=== PATIENT | male | born 1940 | race Caucasian/White ===

== ENCOUNTER 2017-02-28 09:13 | Day surgery (SDC) | payer OTHER, MEDICARE ==
[2017-02-28] MEDS ORDERED: fentaNYL 100 MCG/2 ML INJ IVP ONE (09:22)
[2017-02-28] MEDS ORDERED: NS 500 ML IV ONE (09:22)
[2017-02-28] MEDS ORDERED: MIDAZOLAM 2 MG/2 ML VIAL IVP ONE (09:22)
[2017-02-28] MEDS ORDERED: ETOMIDATE 20 MG/10 ML VIAL IVP ONE (09:22)
[2017-02-28] MEDS ORDERED: PROPOFOL 200 MG/20 ML VIAL IVP ONE (09:22)
[2017-02-28] MEDS ORDERED: BENZOCAINE UNIT DOSE SPRAY HURRICAINE MM ONE (09:22)
--- NOTE | 2017-02-28 09:43 | CPEKG ---
Heart Rate: 153 RR Interval: 392 QRSD Interval: 90 QT Interval: 328 QTC Interval: 524 QRS [place]: -25 T Wave [place]: -5 EKG Severity - ABNORMAL ECG - EKG Impression: ATRIAL FIBRILLATION WITH RAPID V-RATE EKG Impression: BORDERLINE LEFT AXIS DEVIATION EKG Impression: BORDERLINE T ABNORMALITIES, INFERIOR LEADS EKG Impression: ATRIAL FIBRILLATION HAS REPLACED ATRIAL PACING NOTED ON PRIOR ECG Electronically Signed By: Gera Rothman 01-Mar-2017 14:22:10
[2017-02-28] MEDS ORDERED: ETOMIDATE 40 MG/20 ML INJ ONE (10:08)
[2017-02-28 10:22] LABS: INR 2.01 (0.83-1.16); PROTIME(PATIENT) 22.9 SEC (12.0-15.0)
[2017-02-28] MEDS ORDERED: ATROPINE SULFATE 1 MG/10 ML SYR ONE (10:33)
[2017-02-28 10:34] LABS: ANION GAP 11 mEq/L (8-16); CALCIUM 8.8 mg/dL (8.5-10.4); CARBON DIOXIDE 21 mEq/l (22-31); CHLORIDE 107 mEq/L (97-110); CREATININE 0.8 mg/dL (0.7-1.3); GLOMERULAR FILTRATION RATE > 60; GLUCOSE 117 mg/dL (70-100); MAGNESIUM 2.4 mg/dL (1.6-2.3); POTASSIUM 4.1 mEq/L (3.5-5.2); SODIUM 139 mEq/L (134-144)
--- NOTE | 2017-02-28 11:13 | CPEKG ---
Heart Rate: 80 RR Interval: 750 P-R Interval: 156 QRSD Interval: 100 QT Interval: 392 QTC Interval: 453 P [place]: 33 QRS [place]: -15 T Wave [place]: 8 EKG Severity - ABNORMAL ECG - EKG Impression: ATRIAL-PACED COMPLEXES EKG Impression: BORDERLINE LEFT AXIS DEVIATION EKG Impression: BORDERLINE PROLONGED QT INTERVAL EKG Impression: ATRIAL PACING HAS REPLACED ATRIAL FIBRILLATION NOTED ON PRIOR ECG Electronically Signed By: Gera Rothman 01-Mar-2017 14:22:32
--- NOTE | 2017-02-28 11:18 | PDTEE1 ---
ELA Cardioversion Procedure Procedure: Electrical Cardioversion Indications: Atrial Fibrillation Consent: Signed and in Chart Anticoagulation: Xarelto Procedural Details: The pads were placed in anterior-posterior position and the ELA probe was advanced with standard images obtained. There was no evidence of left atrial or left atrial appendage thrombus. Synchronized cardioversion attempt #1: 200J Results: Normal sinus rhythm (There was a brief period of PEA after cardioversion) Conclusions: Successful Cardioversion Patient Problems: Problems Problem Status Onset Atrial fibrillation and flutter Acute
== END 2017-02-28 15:48 | disposition home or self-care (01) ==
LOC: FCATH 09:13
PROVIDERS: ATTEND Internal Medicine Cardiovascular Disease
DX: I48.91 Unspecified atrial fibrillation (principal); I10 Essential (primary) hypertension; I25.10 Atherosclerotic heart disease of native coronary artery without angina pectoris
CPT/HCPCS: J0461; J2250; J3010

== ENCOUNTER → 2017-04-11 | Outpatient (CLI) | payer OTHER, MEDICARE | LOC: BHFA 14:30 | PROVIDERS: ATTEND Internal Medicine Cardiovascular Disease | DX: I25.10 Atherosclerotic heart disease of native coronary artery without angina pectoris (principal); N52.9 Male erectile dysfunction, unspecified; I10 Essential (primary) hypertension; E78.5 Hyperlipidemia, unspecified; I47.2 Ventricular tachycardia; Z95.0 Presence of cardiac pacemaker ==

== ENCOUNTER → 2017-05-29 | Outpatient (CLI) | payer OTHER, MEDICARE ==
[~2017-05-29] MED LIST: IOPAMIDOL (ISOVUE-M 300) 15 ML VIAL ONE; LIDOCAINE 1% 300 MG/30 ML SDV ONE
== END ==
LOC: FIMAGING 10:09
PROVIDERS: ATTEND Physician Assistant
PROC: B01B1ZZ Fluoroscopy of Spinal Cord using Low Osmolar Contrast (ICD-10-PCS; principal; 2017-05-29)
PROC: 3E0R3KZ Introduction of Other Diagnostic Substance into Spinal Canal, Percutaneous Approach (ICD-10-PCS; principal; 2017-05-29)
DX: M51.36 Other intervertebral disc degeneration, lumbar region (principal); M50.323 Other cervical disc degeneration at C6-C7 level; M47.892 Other spondylosis, cervical region; M48.02 Spinal stenosis, cervical region; M53.82 Other specified dorsopathies, cervical region
CPT/HCPCS: 62302; 72126; 72240; Q9967

== ENCOUNTER → 2017-06-25 | Outpatient (CLI) | payer OTHER, MEDICARE | LOC: BHFA 14:00 | PROVIDERS: ATTEND Internal Medicine Cardiovascular Disease | DX: Z01.810 Encounter for preprocedural cardiovascular examination (principal); I25.10 Atherosclerotic heart disease of native coronary artery without angina pectoris; Z95.0 Presence of cardiac pacemaker ==

== ENCOUNTER 2017-07-04 10:36 | Observation (INO) | payer OTHER, MEDICARE ==
--- NOTE | 2017-07-04 07:10 | PDHPUP ---
History & Physical Update H&P update statement: This history and physical update is based on an assessment of the patient which was completed after admission or registration (within 24 hours), but prior to the surgery/procedure. H&P update: H&P reviewed & patient examined, no change in patient's condition since H&P completed
[2017-07-04] MEDS ORDERED: ceFAZolin 2 GM/DEXTROSE 100 ML IV ONE (10:56)
[2017-07-04] MEDS ORDERED: LR 1,000 ML IV ONE (10:57)
[2017-07-04] MEDS ORDERED: LIDOCAINE 1% 2 ML INJ ID PRN (10:57)
[2017-07-04] MEDS ORDERED: LIDOCAINE 1% 2 ML INJ ONE (10:59)
[2017-07-04] MEDS ORDERED: BACITRACIN 50,000 UNITS/10 ML SYR IRR ONE (11:56)
[2017-07-04] MEDS ORDERED: THROMBIN (BOVINE) 5,000 UNIT VIAL TP ONE (11:56)
[2017-07-04] MEDS ORDERED: BUPIVACAINE/EPI 0.5% 30 ML SDV ONE (11:56)
--- NOTE | 2017-07-04 12:09 | PDANEPAE ---
[facility] History of Present Illness here for acdf ANE Past Medical History - Cardiovascular History Hx Hypertension: Yes Hx Arrhythmias: Yes Hx Chest Pain: No Hx Coronary Artery / Peripheral Vascular Disease: Yes Hx CHF / Valvular Disease: No Hx Palpitations: No Cardiovascular History Comment: [place] W X 6 STENTS PLCED '04. htn. cad. hyperlipidemia. pacemaker. nsvt. sss - Pulmonary History Hx COPD: No Hx Asthma/Reactive Airway Disease: No Hx Recent Upper Respiratory Infection: No Hx Oxygen in Use at Home: No Hx Sleep Apnea: No Sleep Apnea Screening Result - Last Documented: Positive Pulmonary History Comment: ruddy triggers - Neurologic History Hx Cerebrovascular Accident: No Hx Seizures: No Hx Dementia: No Neurologic History Comment: hx of back surgery x2 - Endocrine History Hx Diabetes: No Obesity: moderate - Renal History Hx Renal Disorders: Yes Renal History Comment: bph. ed - Liver History Hx Hepatic Disorders: No - Neurological & Psychiatric Hx Hx Neurological and Psychiatric Disorders: No - Cancer History Hx Cancer: Yes - Congenital Disorder History Hx Congenital Disorders: No - GI History Hx Gastrointestinal Disorders: Yes Gastrointestinal History Comment: reflux - Other Health History Other Health History: BRUISE EASILY. wears glasses. wears bilateral hearing aides - Chronic Pain History Chronic Pain: Yes (NECK AND R ARM) - Surgical History Prior Surgeries: BACK SURG x2. RAHEEM RTC. STENTS x6. PACEMAKER 2014. CARDIOVERSION . ABLATION 09-07-14. LOOP RECODER PLACED AND REM [place] Review of Systems Review of systems is: negative - Exercise capacity Exercise capacity: >=4 METS METS (RN): 4 METS - Pacemaker Pacemaker Type: Permanent Pacer/Defib Pacemaker Naturalization Examiner: [employer] [place] Pacemaker Model: Wili GALLO Pacemaker Mode: DDDR Pacemaker Set Rate: 60 Date Pacemaker Last Checked: 05/16/17 ANE Patient History - Allergies Allergies/Adverse Reactions: No Known Allergies Allergy (Verified 06/20/17 10:29) - Home Medications Home medications: home medication list seen and reviewed Home Medications: Ascorbic Acid [Vitamin C 500 mg (*)] 500 mg PO DAILY 09/07/14 [Last Taken ] Aspirin [Aspirin 81mg (*)] 81 mg PO DAILY 09/07/14 [Last Taken 06/27/17] Rivaroxaban [Xarelto] 20 mg PO DAILY 02/11/15 [Last Taken 06/27/17] Amlodipine Besylate [Norvasc] 5 mg PO DAILY 06/14/17 [Last Taken 07/04/17 06:00] Atorvastatin Calcium [Lipitor 20 mg (*)] 20 mg PO DAILY 06/14/17 [Last Taken ] Benazepril HCl [Lotensin] 40 mg PO DAILY 06/14/17 [Last Taken Unknown] Herbals/Supplements -Info Only 1 ea PO DAILY 06/14/17 [Last Taken 06/27/17] Metoprolol Succinate 50 mg PO DAILY 06/14/17 [Last Taken 07/04/17 06:00] Multivitamins [Multivitamin (*)] 1 each PO DAILY 06/14/17 [Last Taken 06/27/17] Pantoprazole Sodium [Protonix 40mg (*)] 40 mg PO DAILY 06/14/17 [Last Taken ] Tamsulosin HCl [Flomax 0.4 MG (*)] 0.4 mg PO DAILY 06/14/17 [Last Taken 07/02/17 ] - NPO status NPO Status: no food or drink >8 hours NPO Since - Liquids (Date): 07/03/17 NPO Since - Liquids (Time): 20:00 NPO Since - Solids (Date): 07/03/17 NPO Since - Solids (Time): 20:00 - Smoking Hx Smoking Status: Former smoker - Family Anes Hx Family Hx Anesthesia Complications: none ANE Labs/Vital Signs - Vital Signs Blood Pressure: 132/85 Heart Rate: 90 Respiratory Rate: 16 O2 Sat (%): 91 Height: 180.34 cm Weight: 97.522 kg ANE Physical Exam - Airway Neck exam: FROM, decreased ROM, short neck Mallampati Score: Class 2 Mouth exam: normal dental/mouth exam - Pulmonary Pulmonary: no respiratory distress - Cardiovascular Cardiovascular: regular rate and rhythym - ASA Status ASA Status: III ANE Anesthesia Plan Anesthesia Plan: general endotracheal anesthesia Specialized Airway: video laryngoscope
[2017-07-04] MEDS ORDERED: fentaNYL 100 MCG/2 ML INJ ONE ×2 (12:33→13:29)
[2017-07-04] MEDS ORDERED: PROPOFOL/EMULSION 500 MG/50 ML BOTTLE IV ONE ×2 (12:33→13:31)
[2017-07-04] MEDS ORDERED: BISACODYL 10 MG SUPP PR PRN (12:35)
[2017-07-04] MEDS ORDERED: METHOCARBAMOL 750 MG TAB PO PRN (12:35)
[2017-07-04] MEDS ORDERED: MAGNESIUM HYDROXIDE 30 ML UDCUP PO PRN (12:35)
[2017-07-04] MEDS ORDERED: POLYETHYLENE GLYCOL 3350 17 GM PKT PO PRN (12:35)
[2017-07-04] MEDS ORDERED: ONDANSETRON DISINTEGRATING 4 MG TAB PO PRN (12:35)
[2017-07-04] MEDS ORDERED: diphenhydrAMINE 25 MG CAP PO PRN (12:35)
[2017-07-04] MEDS ORDERED: ONDANSETRON 4 MG/2 ML VIAL IVP PRN ×2 (12:35→14:14)
[2017-07-04] MEDS ORDERED: LACTULOSE 20 GM/30 ML UDCUP PO PRN (12:35)
[2017-07-04] MEDS ORDERED: NS 1,000 ML IV SCH (12:45)
[2017-07-04] MEDS ORDERED: MIDAZOLAM 2 MG/2 ML VIAL ONE (12:49)
[2017-07-04] MEDS ORDERED: REMIFENTANIL HCL 1 MG VIAL ONE (13:32)
[2017-07-04] MEDS ORDERED: BUPIVACAINE 0.5% 30 ML SDV ONE (13:32)
[2017-07-04] MEDS ORDERED: DEXAMETHASONE 4 MG/ML VIAL IVP PRN (14:14)
[2017-07-04] MEDS ORDERED: fentaNYL 100 MCG/2 ML INJ IVP PRN (14:14)
[2017-07-04] MEDS ORDERED: HYDROmorphONE/DILAUDID 1 MG/ML SYR IVP PRN (14:14)
[2017-07-04] MEDS ORDERED: PROMETHAZINE HCL 25 MG/ML INJ IVP PRN (14:14)
[2017-07-04] MEDS ORDERED: NALOXONE HCL 0.4 MG/ML INJ IVP PRN (14:14)
--- NOTE | 2017-07-04 15:30 | SOAPPROG ---
SOAP Progress Note Assessment/Plan: Post Op Visit: S: Awake and alert. NAD. Pt with expected neck pain O: AFVSS/PERRLA/EOMI no droop CN 2-12 grossly intact +lt touch 5/5 BUE/BLE = CDI A/P: 76 yo male that is s/p ACDF C6/7 -orders in place -call with any questions or concerns -pt understands and agrees -collar in place 07/04/17 15:28 Objective: Vital Signs Temp Pulse Resp BP Pulse Ox 36.7 C 90 16 132/85 H 91 L 07/04/17 11:15 07/04/17 12:09 07/04/17 12:09 07/04/17 12:09 07/04/17 12:09 ICD10 Worksheet Patient Problems: Problems Problem Status Onset Cervical spinal stenosis Acute Atrial fibrillation and flutter Acute - ICD10 Problem Qualifiers (1) Cervical spinal stenosis
--- NOTE | 2017-07-04 16:01 | POSTANESTH ---
Post Anesthetic Evaluation Cardiovascular Status: Normal, Stable Respiratory Status: Normal, Stable Level of Consciousness/Mental Status: Can Participate in Eval Pain Control: Adequate, Prn Tx Ordered Nausea/Vomiting Control: Adequate, Prn Tx Ordered Complications Possibly Related to Anesthesia: None Noted
[2017-07-04] MEDS: ACETAMINOPHEN 500 MG TAB PO SCH ×2 (16:58→22:25)
[2017-07-04] MEDS ORDERED: HYDROCODONE/APAP 5/325 TAB PO PRN (17:14)
[2017-07-04] MEDS ORDERED: oxyCODONE IR 5 MG TAB ONE (17:20)
[2017-07-04] MEDS: oxyCODONE IR 5 MG TAB PO PRN ×2 (17:25→22:26)
[2017-07-04] MEDS: SENNOSIDES/DOCUSATE SODIUM TAB PO SCH (20:55)
[2017-07-04] MEDS: FAMOTIDINE 20 MG TAB PO SCH (20:55)
--- NOTE | 2017-07-04 21:28 | GOP ---
[f rep st] OPERATIVE REPORT DATE OF OPERATION: 07/04/2017 SURGEON: Rosaura Burton MD NEUROSURGEON: Paramjit Burton MD. BOG WORKER: JANAK Minaya. PREOPERATIVE DIAGNOSIS: Cervical spondylosis, cervical foraminal stenosis, C6-7, left C7 radiculopa thy. POSTOPERATIVE DIAGNOSIS: Cervical spondylosis, cervical foraminal stenosis, C6-7, left C7 radiculop athy. PROCEDURE PERFORMED: 1. Anterior cervical diskectomy with decompression, C6-7 and arthrodesis (70350). 2. Anterior cervical instrumentation C6-7 (80061). 3. Placement of biomechanical intervertebral device C6-7 (48835), microscope, same incision bone gr aft harvest. FINDINGS: ESTIMATED BLOOD LOSS: 50 cc. INDICATIONS: The patient has a long history of left C7 radiculitis and had a CT myelogram which yen wed really terrible spondylosis and DDD at C6-7 with some foraminal stenosis. He really had no evid ence of compression at 5-6 or C4-5 or C7-T1, but there was right greater than left foraminal stenosi s. But nevertheless, he had a left C7 radiculopathy and terrible degenerative changes in that disk and I thought it was reasonable to try an anterior cervical diskectomy and fusion at C6-7. He could not have an MRI and so our findings were based purely on CT myelogram. He knew there was a risk of failure and there was a risk of dysphagia, esophageal injury, carotid injury, recurrent laryngeal n erve injury, pseudoarthrosis, adjacent segment disease, and possible need for additional surgery at another level in the future. He accepted these risks and he did want to proceed. DESCRIPTION OF PROCEDURE: The patient was taken to the operating room, placed in supine position. General anesthesia was begun. Arterial line was placed. A midline shoulder roll was placed. He wa s put on the [employer] horseshoe head char filter tank tender. Care was taken to pad all points of contact. His neck was sterilely prepped and draped in usual fashion. We made an incision in the transverse fashion o n the right side of his neck, down low at the junction of the sternocleidomastoid and the manubrium. The subcutaneous tissue was dissected using Bovie cautery through the platysma, and we used a comb ination of sharp and blunt dissection medial to the sternocleidomastoid and lateral to the strap mus cles, down to the prevertebral space. There was an absolutely huge ossified coming off the ventral surface at C6-7. We dissected the longus colli muscles off the spine and then carefully drilled thi s large ventral osteophyte off. Localizing x-rays were taken. We then placed distraction pins in t he C6-C7 vertebral body, distracted between them, removed the disk and the cartilaginous endplates. We drilled and harvested subchondral bone for autologous grafting purposes, sized the space and cho se a 14 x 18 x 8 mm device. It was a very large wide implant. We decompressed from uncinate proces s to uncinate process. We opened the PLL and decompressed thecal sac and the neural foramina bilate rally. Bone dust was placed into the implant. It was inserted at C6-C7 and a nice fit was obtained . We removed our distraction pins, placed Gelfoam bullets in the holes that remained and we then ch ose a 14 mm plate, used 16 mm screws and placed all 4 screws and shot a final x-ray and they were al l in excellent position. The plate was sitting flush against the vertebral body. We then obtained meticulous hemostasis. Placed the dysphagia protocol study drug into the prevertebral space, 7 cc w ere used. We then closed the platysma with interrupted Vicryl sutures and place Steri-Strips on the skin. The patient was reversed from anesthesia, extubated, and transferred to recovery room in sta ble condition. There were no complications. COMPLICATIONS: None. INSTRUMENTATION USED: We used a Butch Gustavo implant, a 14 x 18 x 8 mm device at C6-7 and we used C-spine Cabo plate. We used 14 mm plate, 16 mm screw. The spine rep was Quentin Gonzalez. COMPLICATIONS: None. /[id number]/MODL
[2017-07-04] MEDS: ceFAZolin 2 GM/DEXTROSE 100 ML IV SCH (22:27)
[2017-07-05] MEDS: oxyCODONE IR 5 MG TAB PO PRN ×2 (02:29→06:25)
[2017-07-05] MEDS ORDERED: PNEUMOC 13-VAL CONJ-DIP CRM/PF 0.5 ML SYR IM ONE (05:21)
[2017-07-05] MEDS: ACETAMINOPHEN 500 MG TAB PO SCH ×2 (05:23→14:20)
[2017-07-05] MEDS: ceFAZolin 2 GM/DEXTROSE 100 ML IV SCH (05:23)
--- NOTE | 2017-07-05 07:44 | NEUSURGPN ---
Date of Surgery: 07/04/17 Post Op Day: 1 Assessment/Plan: Assessment: 76 yo male that is s/p ACDF C6/7 POD #1 Plan: -pt with some expected neck pain -tolerating the collar fine -pending PT/OT this am -swallowing well -post op xrays pending -plan for ?dc later today if passes PT/OT and ready to go -orders in place -call with any questions or concerns -pt understands and agrees -collar in place-no skin issues 07/04/17 15:28 Subjective: Awake and alert. NAD. Eating/drinking and voiding. No f/c/n/v/d. No ro/cp/ sob/abd or gu complaints. Objective: AFVSS/PERRLA/EOMI no droop CN 2-12 grossly intact +lt touch 5/5 BUE/BLE = CDI Neuro Check Frequency: per routine Urinary Catheter in Place: No - Physician Discussed Patient with : Shereen Patient Seen by : Shereen Neurosurgery Physical Exam - Vitals, I&O, Labs I and O 07/04/17 07/05/17 07/06/17 05:59 05:59 05:59 Intake Total 3154 400 Output Total 450 300 Balance 2704 100 Weight 97.522 kg Intake: Oral (ml) 1420 400 IV Intake (ml) 1350 IV Infused (ml) 384 Ns 1,000 ml @ 75 mls/hr 284 IV CONT TIGRE Rx#: [id number] ceFAZolin 2 GM/DEXTROSE 100 100 ml @ 200 mls/hr IV Q8HRS TIGRE Rx#:[id number] Output: Urine (ml) 400 300 Urinal 400 300 Estimated Blood Loss (ml) 50 Other: Intake Quantity Yes Yes Sufficient Number of Voids Urinal 1 3 Post Void Residual Scan Volume (ml) Urinal 82 Vital Signs Temp Pulse Resp BP Pulse Ox 36.8 C 91 18 124/80 H 91 L 07/05/17 04:53 07/05/17 04:53 07/05/17 04:53 07/05/17 04:53 07/05/17 04:53 ICD10 Worksheet Patient Problems: Problems Problem Status Onset Cervical spinal stenosis Acute Atrial fibrillation and flutter Acute - ICD10 Problem Qualifiers (1) Cervical spinal stenosis
[2017-07-05 07:50] VITALS: RESP 14; TEMP 98.3
[2017-07-05] MEDS ORDERED: BENAZEPRIL HCL 20 MG TAB PO SCH (09:00)
[2017-07-05] MEDS ORDERED: TAMSULOSIN HCL 0.4 MG CAP PO SCH (09:00)
[2017-07-05] MEDS ORDERED: METOPROLOL SUCCINATE XR 50 MG TAB PO SCH (09:00)
[2017-07-05] MEDS ORDERED: ATORVASTATIN CALCIUM 20 MG TAB PO SCH (09:00)
[2017-07-05] MEDS ORDERED: PANTOPRAZOLE SODIUM 40 MG TAB PO SCH (09:00)
[2017-07-05] MEDS ORDERED: amLODIPine BESYLATE 5 MG TAB PO SCH (09:00)
[2017-07-05] MEDS: SENNOSIDES/DOCUSATE SODIUM TAB PO SCH (10:17)
[2017-07-05] MEDS: FAMOTIDINE 20 MG TAB PO SCH (10:17)
[2017-07-05 11:45] VITALS: BP 119/63; PULSE 61
[2017-07-05 17:19] VITALS: O2SAT 85
[2017-07-07] MEDS ORDERED: ENOXAPARIN 40 MG/0.4 ML SYR SC SCH (09:00)
== END 2017-07-05 17:48 | disposition home or self-care (01) ==
LOC: F3N 10:36
PROVIDERS: ADMIT Neurological Surgery; ATTEND Neurological Surgery
PROC: 8E0WXBZ Computer Assisted Procedure of Trunk Region (ICD-10-PCS; principal; 2017-07-04 13:30)
PROC: 0RG10A0 Fusion of Cervical Vertebral Joint with Interbody Fusion Device, Anterior Approach, Anterior Column, Open Approach (ICD-10-PCS; principal; 2017-07-04 13:30)
PROC: 0RT50ZZ Resection of Cervicothoracic Vertebral Disc, Open Approach (ICD-10-PCS; principal; 2017-07-04 13:30)
DX: M47.812 Spondylosis without myelopathy or radiculopathy, cervical region (principal); M48.02 Spinal stenosis, cervical region; Z95.0 Presence of cardiac pacemaker
CPT/HCPCS: 22551; 22853; 72040; 76001; 90670; 97161; 97165; C1713; G0009; G8978; G8979; G8980; G8987; G8988; G8989; J0690; J2250; J2704; J3010

== ENCOUNTER 2017-07-09 16:10 | Emergency (ER) | payer OTHER, MEDICARE ==
[2017-07-09 16:15] VITALS: RESP 18
--- NOTE | 2017-07-09 16:37 | EDPHY ---
H & P Time Seen by Provider: 07/09/17 16:30 HPI/ROS: CHIEF COMPLAINT: Constipation HISTORY OF PRESENT ILLNESS: The patient is a 76-year-old male presenting with constipation. s/p cervical discectomy 07/04/17. Has not had a BM since surgery. Initially, he was on Percocet, but he stopped taking Percocet 4 days ago. Since stopping the pain medication he has not been able to have a bowel movement. The patient has tried multiple remedies including an enema, Ex-Lax, and stool softeners without any relief. He complains of moderate lower abdominal cramping and bloating. He denies vomiting. No increase in cervical pain. No fever, weakness or numbness. REVIEW OF SYSTEMS: A comprehensive 10 point review of systems is otherwise negative aside from elements mentioned in the history of present illness. Past Medical/Surgical History: [place] with cardiac stents x6, Atrial fibrillation, Hypertension, Dyslipidemia, Laminectomy x2, Cervical discectomy 07/05/17. Social History: Single. Lives in [place]. Has a critical care nurse practitioner. Smoking Status: Former smoker Physical Exam: General Appearance: Alert, pleasant Eyes: Pupils equal and round, no conjunctival pallor or injection ENT, Mouth: Mucous membranes moist Neck: Normal inspection Respiratory: Lungs are clear to auscultation Cardiovascular: Regular rate and rhythm Gastrointestinal: Lower abdominal tenderness, no peritoneal signs Rectal: Minimal stool in the vault Neurological: A&O, nonfocal, normal gait Skin: Warm and dry, no rash Extremities: Nontender, no pedal edema Psychiatric: Mood and affect normal Constitutional: Initial Vital Signs Temperature (C) 37.1 C 07/09/17 16:13 Heart Rate 77 07/09/17 16:13 Respiratory Rate 18 07/09/17 16:13 Blood Pressure 104/82 H 07/09/17 16:13 O2 Sat (%) 92 07/09/17 16:13 O2 Delivery Mode Room Air Allergies/Adverse Reactions: No Known Allergies Allergy (Verified 07/09/17 16:12) Home Medications: Medication Instructions Recorded Ascorbic Acid [Vitamin C 500 mg 500 mg PO DAILY 09/07/14 (*)] Rivaroxaban [Xarelto] 20 mg PO DAILY 02/11/15 Amlodipine Besylate [Norvasc] 5 mg PO DAILY 06/14/17 Atorvastatin Calcium [Lipitor 20 20 mg PO DAILY 06/14/17 mg (*)] Benazepril HCl [Lotensin] 40 mg PO DAILY 06/14/17 Herbals/Supplements -Info Only 1 ea PO DAILY 06/14/17 Metoprolol Succinate 50 mg PO DAILY 06/14/17 Multivitamins [Multivitamin (*)] 1 each PO DAILY 06/14/17 Pantoprazole Sodium [Protonix 40mg 40 mg PO DAILY 06/14/17 (*)] Tamsulosin HCl [Flomax 0.4 MG (*)] 0.4 mg PO DAILY 06/14/17 Methocarbamol [Robaxin 750 mg (*)] 750 mg PO QID PRN #60 tab 07/05/17 oxyCODONE IR [Oxycodone Ir (*)] 5 - 10 mg PO Q4HRS PRN #90 tab 07/05/17 Medical Decision Making - Diagnostics Imaging Results: Abdomen X-Ray 07/09/17 18:03 Impression: Probable ileus. CT abd/pelvis: mild ileus Imaging: I viewed and interpreted images myself ED Course/Re-evaluation: Patient presents with c/o constipation s/p cervical discectomy 07/04/17. On rectal exam patient has minimal stool in the vault. Plan for soap suds enema. 6:00 p.m.: Per nursing staff, patient was able to have a small bowel movement after enema. He felt some pressure release in his abdomen, but continues to have abdominal pain and bloating. Plan for magnesium citrate. I ordered Hemoccult and x-ray of the abdomen. Pt states that he feels better, but minimal BM. X-ray c/w ileus. Stool occult is negative. Lab work is unremarkable. Abd soft, lower abd tenderness, but less than previously. I ordered abdominal CT. Unusual that he did not have BM after enema, though feels somewhat better. 7:45 p.m.: CT abdomen/pelvis is unremarkable per the radiologist, Dr. Johnson. Rsults d/w pt, he feels much better, though has not had another BM. Abd soft, minimal suprapubic tenderness. Plan to discharge patient home. Unclear etiology of abd pain, no evidence of contipation-related pain or SBP. Safe/ stable for d/c. Differential Diagnosis: includes though not limited to appy, obstipation, SBO, diverticulitis, bowel perforation - Data Points Laboratory Results: Laboratory Results 07/09/17 18:55 07/09/17 18:55 Medications Given: Discontinued Medications Magnesium Citrate (Magnesium Citrate) 300 ml PO EDNOW ONE Stop: 07/09/17 18:04 Last Admin: 07/09/17 20:05 Dose: 1 btl Departure - Departure Disposition: Home, Routine, Self-Care Clinical Impression: Abdominal pain Condition: Good Instructions: Abdominal Pain (ED) Additional Instructions: I recommend clear liquid diet with gradual diet advancement as tolerated for the next 24 hours. Take 650mg Tylenol every 4-8 hours as needed for pain. Return to the Emergency Department with new or worsening symptoms. Referrals: RALPH CONRAD [Primary Care Provider] - As per Instructions Report Scribed for: Cande Bajwa Report Scribed by: Aby Pimentel Date of Report: 07/09/17 Time of Report: 16:37 Physician Review and Approval Statement: 07/09/17 16:37 Portions of this note were transcribed by a medical practice manager. I personally performed the history, physical exam, and medical decision-making; and confirmed the accuracy of the information in the transcribed note.
[2017-07-09] MEDS ORDERED: MAGNESIUM CITRATE 300 ML BOTTLE PO ONE (18:03)
[2017-07-09 19:02] LABS: % IMMATURE GRANULYOCYTES 0.3 % (0.0-1.1); ABSOLUTE IMMATURE GRANULOCYTES 0.03 10^3/uL (0.00-0.10); ADD DIFF? NO; ADD MORPH? NO; ADD SCAN? NO; ATYPICAL LYMPHOCYTE FLAG 0 (0-99); FRAGMENT RBC FLAG 0 (0-99); HEMATOCRIT 47.3 % (40.0-51.0); HEMOGLOBIN 16.3 g/dL (13.7-17.5); LEFT SHIFT FLG 0 (0-99); LIPEMIA HEMOLYSIS FLAG 90 (0-99); MEAN CELL HEMOGLOBIN 31.8 pg (27.9-34.1); MEAN CELL HEMOGLOBIN CONCENTR. 34.5 g/dL (32.4-36.7); MEAN CELL VOLUME 92.2 fL (81.5-99.8); MEAN PLATELET VOLUME 10.1 fL (8.7-11.7); PLATELET CLUMPS FLAG 10 (0-99); PLATELET COUNT 181 10^3/uL (150-400); RED BLOOD CELL COUNT 5.13 10^6/uL (4.40-6.38); RED CELL DISTRIBUTION WIDTH 12.3 % (11.5-15.2)
[2017-07-09] MEDS ORDERED: IOPAMIDOL (ISOVUE-300) 100 ML BTL ONE (19:05)
[2017-07-09 19:15] LABS: ANION GAP 11 mEq/L (8-16); CALCIUM 9.2 mg/dL (8.5-10.4); CARBON DIOXIDE 23 mEq/l (22-31); CHLORIDE 100 mEq/L (97-110); CREATININE 0.9 mg/dL (0.7-1.3); GLOMERULAR FILTRATION RATE > 60; GLUCOSE 92 mg/dL (70-100); POTASSIUM 3.4 mEq/L (3.5-5.2); SODIUM 134 mEq/L (134-144)
[2017-07-09 20:04] VITALS: BP 132/71; PULSE 80; TEMP 98.4; O2SAT 91
== END 2017-07-09 20:04 | disposition home or self-care (01) ==
DX: R10.30 Lower abdominal pain, unspecified (principal); I10 Essential (primary) hypertension; Z79.01 Long term (current) use of anticoagulants; Z87.891 Personal history of nicotine dependence; Z95.5 Presence of coronary angioplasty implant and graft
CPT/HCPCS: 74000; 74177; 99285; Q9967; 82947-QW

== ENCOUNTER → 2017-12-28 | Outpatient (CLI) | payer OTHER, MEDICARE | LOC: FIMAGING 11:52 | PROVIDERS: ATTEND Nurse Practitioner | DX: Z09 Encounter for follow-up examination after completed treatment for conditions other than malignant neoplasm (principal); Z98.1 Arthrodesis status ==

== ENCOUNTER → 2018-01-22 | Outpatient (CLI) | payer OTHER, MEDICARE | LOC: BHFA 14:00 | PROVIDERS: ATTEND Internal Medicine Cardiovascular Disease | DX: I47.1 Supraventricular tachycardia (principal) ==